=== PATIENT | female | born 1965 | race Caucasian/White ===

== ENCOUNTER 2016-07-07 15:55 | Emergency (ER) | payer OTHER ==
--- NOTE | 2016-07-07 18:40 | ED CLINICAL REPORT ---
Clinical Report - Physicians/Mid Levels [facility] [address] [place] [address] 07/07/2016 15:56 Patient: EUFEMIA THOMAS Time Seen: 1630Jul 07 2016. Arrived- By private vehicle. Historian- patient. HISTORY OF PRESENT ILLNESS Chief Complaint: ABDOMINAL PAIN. It is described as "pain" and it is described as located in the upper abdomen and in the lower abdomen. This started today. (3 hours post eating quesadilla, patient developed abdominal pain, upper abdominal pain, times lower abdominal pain, pain slowly improving. Patient denies any fevers or chills or diarrhea. Denies any nausea or vomiting. Denies any pain similar to this. Patient denies cough, COPD, recent illness. Denies any history of DVT or PE. Brown stool within the last few days. Denies hematochezia.). REVIEW OF SYSTEMS No constipation, black stools, headache, sore throat or chest pain. All systems otherwise negative, except as recorded above. SOCIAL HISTORY Never smoker. Alcohol use. ADDITIONAL NOTES The nursing notes have been reviewed. PHYSICAL EXAM Vital Signs: 07/07/2016 16:18 BP: 122/68. HR: 56. RR: 18. O2 saturation: 100%. Temp: 98.4 F. Appearance: Alert. ENT: Ears normal. Neck: Normal inspection. CVS: Normal heart rate and rhythm. No extra heart sounds. Respiratory: No respiratory distress. Breath sounds normal. Abdomen: Mild tenderness in the upper abdomen, periumbilical area and suprapubic area. No mass. No obesity, distention or guarding. Back: Normal inspection. Skin: Skin warm. Normal skin color. LABS, X-RAYS, AND EKG Laboratory Tests: UA-Culture if indicated: (NOMAN: 07/07/2016 17:00) ( MsgRcvd 07/07/2016 17:24) Final results Test Result Flag Units (Reference) URINE COLOR YELLOW URINE APPEARANCE CLOUDY URINE GLUCOSE NEGATIVE (NEGATIVE) URINE BILIRUBIN NEGATIVE (NEGATIVE) URINE KETONE NEGATIVE (NEGATIVE) URINE SPECIFIC GRAVITY 1.015 (1.010-1.030) URINE PH 8.5 H (5.0-8.0) URINE PROTEIN NEGATIVE (NEGATIVE) URINE UROBILINOGEN 0.2 EU/dL (0.2-1.0) URINE NITRITE NEGATIVE (NEGATIVE) URINE BLOOD NEGATIVE (NEGATIVE) URINE LEUK ESTERASE NEGATIVE (NEGATIVE) URINE RBC NONE SEEN rbc/hpf (0-1) URINE WBC 0-1 wbc/hpf (0-1) URINE EPITHELIAL CELLS 1-3 EPI/hpf (0-5) URINE BACTERIA TRACE (<1+) (NONE SEEN) URINE COMMENT CULT NOT INDICATED 2+ AMORPHOUSURINE CULTURES ARE SET-UP BASED ON THE FOLLOWING CRITERIA:POSITIVE NITRITEPOSITIVE LEUKOCYTE ESTERASEGREATER THAN 10 WHITE BLOOD CELLSMODERATE (2+) OR GREATER BACTERIA CBC w Diff: (NOMAN: 07/07/2016 16:25) ( [facility] 07/07/2016 16:49) Final results Test Result Flag Units (Reference) WHITE BLOOD COUNT 8.2 K/uL (4.5-11.5) RED BLOOD COUNT 4.76 M/uL (4.00-5.20) HEMOGLOBIN 14.1 gm/dL (12.0-16.0) HEMATOCRIT 41.9 % (36.0-46.0) MEAN CELL VOLUME 88 fL (80-100) MEAN CORPUSCULAR HGB 30 pg (26-34) MEAN CORPUSCULAR HGB CONC 34 g/dL (31-37) RED CELL DISTRIBUTION WIDTH 13.6 % (11.6-14.8) PLATELET COUNT 196 K/uL (150-400) NEUTROPHIL % 52.1 % (50-75) LYMPH % 40.8 H % (25-40) MONO % 6.1 % (3-14) EOSINOPHIL % 0.7 % (0-4) BASOPHIL % 0.3 % (0-2) CMP: (NOMAN: 07/07/2016 16:25) ( [facility] 07/07/2016 17:06) Final results Test Result Flag Units (Reference) GLUCOSE 101 mg/dL (70-110) BUN 14 mg/dL (7-18) CREATININE 1.0 mg/dL (0.6-1.3) Estimated GFR >60 mL/min Estimated GFR- >60 mL/min Note: Persistent reduction over 3 months in eGFR<60 mL/min/1.73 m2 defines CKD. Patients with eGFR values>=60 mL/min/1.73 m2 may also have CKD if evidence ofpersistent proteinuria. Additional information may be foundat www.kidney.org. SODIUM 142 mmol/L (136-145) POTASSIUM 3.3 L mmol/L (3.5-5.1) CHLORIDE 105 mmol/L (98-107) CARBON DIOXIDE 26 mmol/L (21-32) CALCIUM 9.1 mg/dL (8.5-10.1) TOTAL PROTEIN 7.6 g/dL (6.4-8.2) ALBUMIN 4.0 g/dL (3.3-5.0) BILIRUBIN, TOTAL 0.3 mg/dL (0.0-1.0) ALKALINE PHOSPHATASE 67 U/L (46-116) AST (SGOT) 20 U/L (15-37) ALT (SGPT) 33 U/L (12-78) LIPASE 123 U/L (73-393) . Note - Tests: (US abd: IMPRESSION: 1. Two hepatic hemangiomas Electronically Final signed by:Elliott Ambrocio MD 07/07/2016 9:13:31 PM). PROGRESS AND PROCEDURES Course of Care: Patient has had urinary irritation for a few years, no new symptoms in relationship to urine today, thus will not treat for urine, and await culture. She had epigastric pain status post eating. Per head of academic technology report, no obvious findings concerning for acute cholecystitis. During the time in the ED, the following DDX were considered: acute surgical abdomen, hemodynamic or metabolic instability, dehydration, gastroenteritis-viral, food borne, or bacterial, food intolerance, irritable or inflammatory bowel, infection, sepsis. 07/07/2016 18:55 BP: 140/70. HR: 79. RR: 20. O2 saturation: 100%. Pain level now: 2/10. Patient is stable. Patient/family counseled. Disposition: Discharged. Condition: good. CLINICAL IMPRESSION Abdominal pain of unknown cause. INSTRUCTIONS Drink plenty of fluids. Take small frequent sips Follow a soft diet. Prescription Medications: Zofran (orally disintegrating tablets) 4 mg: take 1 orally every 6 hours for 3 days as needed for nausea. Dispense ten (10). No refill. Substitution is permissible. Omeprazole 20 mg capsules: Take 1 orally once daily. Dispense fifteen (15). No refills. Follow-up: Follow up with your doctor in five days. (Electronically signed by Heidi Obando P.A.-C 07/07/2016 21:56)
--- NOTE | 2016-07-07 18:40 | ED ORDER SUMMARY ---
..... Patient: EUFEMIA THOMAS OrderSheet [facility] VisitID: [id number] [place] [address] 50y, F Registration Date/Time: 07/07/2016 ORDER SHEET Weight: 72.5 kg (stated) Allergies: Imitrex, All anti seizure medications, Zanaflex GENERAL ORDERS: US Abdomen Limited (No) Urgent (16:40 07/07/2016 EKoroleva P.A.-C) (Ack 16:47 RKaruga) (18:15 KWilliams R.N.) CBC w Diff Urgent (16:41 07/07/2016 EKoroleva P.A.-C) (Ack 16:46 RKaruga) (16:48 SReitz R.N.) CMP Urgent (16:41 07/07/2016 EKoroleva P.A.-C) (Ack 16:46 RKaruga) (16:48 SReitz R.N.) UA-Culture if indicated Urgent (16:41 07/07/2016 EKoroleva P.A.-C) (Ack 16:46 RKaruga) (17:08 OHernandez) Lipase Urgent (16:41 07/07/2016 EKoroleva P.A.-C) (Ack 16:46 RKaruga) (16:48 SReitz R.N.) MEDICATION ORDERS: IV FLUIDS: IV Saline Lock (16:41 07/07/2016 EKoroleva P.A.-C) (Ack 16:48 SReitz R.N.) (17:03 KWilliams R.N.) Zofran IV 4 mg (NOW) (18:13 07/07/2016 EKoroleva P.A.-C) (18:13 KWilliams R.N.) ORDER SHEET NOTES: [Electronically signed by Alexandra Cao R.N. (20:29 07/07/2016)] [Electronically signed by Heidi Obando P.A.-C (21:56 07/07/2016)] [Electronically locked/signed by Alexandra Cao R.N. (20:29 07/07/2016)]
--- NOTE | 2016-07-07 18:40 | ED NURSING NOTES ---
Clinical Report - Nurses [facility] [address] [place] [address] 07/07/2016 15:56 Patient: EUFEMIA THOMAS TRIAGE Triage time 16:18. Acuity: LEVEL 3. Chief Complaint: ABDOMINAL PAIN and NAUSEA. Alert. No acute distress. ( Pt. states she has had "migraines forever but I dont think I have ever had a stomach one). SEPSIS SCREEN: Sepsis Screen. Negative (no infection suspected/documented). EVA COMA SCORE: [place] Coma Scale: 15- eyes open spontaneously (4); best verbal response- oriented x 4 (5); best motor response- obeys commands (6). --16:24 Bina Jasso R.N. 16:18 07/07/16. BP: 122/68. HR: 56. RR: 18. O2 saturation: 100%. Temp: 98.4 F. Pain level now 10/10. --16:24 Bina Jasso R.N. Weight: 72.5 kg stated. Height/Length: 67 inches Per Patient. BMI: 25.1. --16:20 Bina Jasso R.N. Medications Ibuprofen Oral, as needed. --16:21 Bina Jasso R.N. Allergies Imitrex. --16:21 Bina Jasso R.N. All anti seizure medications. --16:21 Bina Jasso R.N. Zanaflex. --16:22 Bina Jasso R.N. History Arrived by private vehicle. Historian: patient. Accompanied by spouse. Primary physician (Zee Davis). This started today. 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 (800mg in the am). PAST MEDICAL HX: Immunizations: up-to-date. SOCIAL HX: Never smoker. Occasional alcohol use. No drug use. No recent travel. No known contact with a sick individual. ABUSE ASSESSMENT: Abuse assessment: The patient was asked "Do you feel safe in your home?" and "Has anyone hurt you or threatened to hurt you?". No report of abuse. NUTRITIONAL RISK ASSESSMENT: The nutritional risk assessment revealed no deficiencies. FUNCTIONAL ASSESSMENT: Functional assessment: no impairments noted. LEARNING NEEDS ASSESSMENT: The learning needs assessment revealed no barriers. --16:24 Bina Jasso R.N. PROBLEMS: Glaucoma. Asthma. Breast Mass. Migraine Headache. --16:23 Bina Jasso R.N. ADDITIONAL SURGERIES: Breast. PFO closure. --16:24 Bina Jasso R.N. Interventions ID band on patient. Transported via wheelchair. --16:24 Bina Jasso R.N. PHYSICAL ASSESSMENT Ambulatory to room. GENERAL / NEURO / PSYCH: Alert. Appears in no acute distress. HEENT: Mucous membranes are pink. RESPIRATORY: Respirations not labored. CVS: Capillary refill less than 2 seconds. GI / : Abdomen soft. Abdominal tenderness in the lower abdomen. SKIN: Skin is warm and dry. --16:26 Bina Jasso R.N. NURSING PROGRESS NOTES Patient gowned. Head of bed elevated. Two patient identifiers checked. Call light placed in reach. Side rails up x 2. Bed placed in lowest position. Brakes of bed on. Patient ready for evaluation- chart flagged. --16:26 Bina Jasso R.N. 16:27 07/07/2016 Site #1 started via IV in the left antecubital space with an 20g angiocath, with aseptic technique and good blood return; one attempt. Blood drawn: rainbow set. Labeled in the presence of the patient and sent to the lab. Saline lock flushed with 10 mL saline. --16:27 Bina Jasso R.N. 17:49 07/07/16. ( vitals deferred, Ultrasound in progress). --17:49 Maria M Elizabeth R.N. 18:05 07/07/16. GI / : The patient reports vomiting (yellow-white emesis, <75cc). --18:15 Maria M Elizabeth R.N. 18:08 07/07/2016 Zofran (Ondansetron HCl) IVP 4 mg given over 2 minute(s) via site #1. Allergies verified and confirmed 5 rights. IV patency established. IV site checked: no pain, redness, or swelling. IV flushed thoroughly pre- and post-medication administration. IVP given by RN. --18:13 Maria M Elizabeth R.N. 18:05 07/07/16. BP: 138/80. HR: 75. RR: 16. O2 saturation: 100%. Pain level now 06/21. --18:15 Maria M Elizabeth R.N. Reassessment after medication administered. She reports no complaints, she is calm and resting quietly and she has had no adverse reaction. Overall patient status is improved- she states feels better. GI / : The patient reports nausea is gone now. The patient reports vomiting is gone now. --18:26 Maria M Elizabeth R.N. DISPOSITION / DISCHARGE Condition at departure: improved. No learning barriers present. Discharge instructions provided and reviewed with the patient and spouse. Reviewed medication(s) side effects, precautions, dosing and course information. Prescription(s) given to the patient. Patient verbalized understanding. Written instructions provided in Vietnamese. The patient was discharged home and accompanied by spouse. She left the Emergency Department ambulatory and via private vehicle. Spouse driving. Medication list reviewed and validated. --19:51 Alexandra Cao R.N. 18:55 07/07/16. BP: 140/70. HR: 79. RR: 20. O2 saturation: 100%. Temp: deferred. Pain level now: 05/24. 18:13 07/07/16. BP: 138/80. HR: 75. RR: 16. O2 saturation: 100%. Pain level now 06/21. 16:18 07/07/16. BP: 122/68. HR: 56. RR: 18. O2 saturation: 100%. Temp: 98.4 F. Pain level now 01/21. --19:51 Alexandra Cao R.N. 18:55. --19:51 Alexandra Cao R.N. Locked/Released at 07/07/2016 20:29 by Alexandra Cao R.N.
--- NOTE | 2016-07-07 18:40 | ED NURSING NOTES ---
Clinical Report - Nurses [facility] [address] [place] [address] 07/07/2016 15:56 Patient: EUFEMIA THOMAS TRIAGE Triage time 16:18. Acuity: LEVEL 3. Chief Complaint: ABDOMINAL PAIN and NAUSEA. Alert. No acute distress. ( Pt. states she has had "migraines forever but I dont think I have ever had a stomach one). SEPSIS SCREEN: Sepsis Screen. Negative (no infection suspected/documented). EVA COMA SCORE: [place] Coma Scale: 15- eyes open spontaneously (4); best verbal response- oriented x 4 (5); best motor response- obeys commands (6). --16:24 Bina Jasso R.N. 16:18 07/07/16. BP: 122/68. HR: 56. RR: 18. O2 saturation: 100%. Temp: 98.4 F. Pain level now 10/10. --16:24 Bina Jasso R.N. Weight: 72.5 kg stated. Height/Length: 67 inches Per Patient. BMI: 25.1. --16:20 Bina Jasso R.N. Medications Ibuprofen Oral, as needed. --16:21 Bina Jasso R.N. Allergies Imitrex. --16:21 Bina Jasso R.N. All anti seizure medications. --16:21 Bina Jasso R.N. Zanaflex. --16:22 Bina Jasso R.N. History Arrived by private vehicle. Historian: patient. Accompanied by spouse. Primary physician (Zee Davis). This started today. 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 (800mg in the am). PAST MEDICAL HX: Immunizations: up-to-date. SOCIAL HX: Never smoker. Occasional alcohol use. No drug use. No recent travel. No known contact with a sick individual. ABUSE ASSESSMENT: Abuse assessment: The patient was asked "Do you feel safe in your home?" and "Has anyone hurt you or threatened to hurt you?". No report of abuse. NUTRITIONAL RISK ASSESSMENT: The nutritional risk assessment revealed no deficiencies. FUNCTIONAL ASSESSMENT: Functional assessment: no impairments noted. LEARNING NEEDS ASSESSMENT: The learning needs assessment revealed no barriers. --16:24 Bina Jasso R.N. PROBLEMS: Glaucoma. Asthma. Breast Mass. Migraine Headache. --16:23 Bina Jasso R.N. ADDITIONAL SURGERIES: Breast. PFO closure. --16:24 Bina Jasso R.N. Interventions ID band on patient. Transported via wheelchair. --16:24 iBna Jasso R.N. PHYSICAL ASSESSMENT Ambulatory to room. GENERAL / NEURO / PSYCH: Alert. Appears in no acute distress. HEENT: Mucous membranes are pink. RESPIRATORY: Respirations not labored. CVS: Capillary refill less than 2 seconds. GI / : Abdomen soft. Abdominal tenderness in the lower abdomen. SKIN: Skin is warm and dry. --16:26 Bina Jasso R.N. NURSING PROGRESS NOTES Patient gowned. Head of bed elevated. Two patient identifiers checked. Call light placed in reach. Side rails up x 2. Bed placed in lowest position. Brakes of bed on. Patient ready for evaluation- chart flagged. --16:26 Bina Jasso R.N. 16:27 07/07/2016 Site #1 started via IV in the left antecubital space with an 20g angiocath, with aseptic technique and good blood return; one attempt. Blood drawn: rainbow set. Labeled in the presence of the patient and sent to the lab. Saline lock flushed with 10 mL saline. --16:27 Bina Jasso R.N. 17:49 07/07/16. ( vitals deferred, Ultrasound in progress). --17:49 Maria M Elizabeth R.N. 18:05 07/07/16. GI / : The patient reports vomiting (yellow-white emesis, <75cc). --18:15 Maria M Elizabeth R.N. 18:08 07/07/2016 Zofran (Ondansetron HCl) IVP 4 mg given over 2 minute(s) via site #1. Allergies verified and confirmed 5 rights. IV patency established. IV site checked: no pain, redness, or swelling. IV flushed thoroughly pre- and post-medication administration. IVP given by RN. --18:13 Maria M Elizabeth R.N. 18:05 07/07/16. BP: 138/80. HR: 75. RR: 16. O2 saturation: 100%. Pain level now 06/21. --18:15 Maria M Elizabeth R.N. Reassessment after medication administered. She reports no complaints, she is calm and resting quietly and she has had no adverse reaction. Overall patient status is improved- she states feels better. GI / : The patient reports nausea is gone now. The patient reports vomiting is gone now. --18:26 Maria M Elizabeth R.N. DISPOSITION / DISCHARGE Condition at departure: improved. No learning barriers present. Discharge instructions provided and reviewed with the patient and spouse. Reviewed medication(s) side effects, precautions, dosing and course information. Prescription(s) given to the patient. Patient verbalized understanding. Written instructions provided in Austrian. The patient was discharged home and accompanied by spouse. She left the Emergency Department ambulatory and via private vehicle. Spouse driving. Medication list reviewed and validated. --19:51 Alexandra Cao R.N. 18:55 07/07/16. BP: 140/70. HR: 79. RR: 20. O2 saturation: 100%. Temp: deferred. Pain level now: 05/24. 18:13 07/07/16. BP: 138/80. HR: 75. RR: 16. O2 saturation: 100%. Pain level now 06/21. 16:18 07/07/16. BP: 122/68. HR: 56. RR: 18. O2 saturation: 100%. Temp: 98.4 F. Pain level now 01/21. --19:51 Alexandra Cao R.N. 18:55. --19:51 Alexandra Cao R.N. Locked/Released at 07/07/2016 20:29 by Alexandra Cao R.N.
--- NOTE | 2016-07-07 18:40 | ED ORDER SUMMARY ---
..... Patient: EUFEMIA THOMAS OrderSheet [facility] VisitID: [id number] [place] [address] 50y, F Registration Date/Time: 07/07/2016 ORDER SHEET Weight: 72.5 kg (stated) Allergies: Imitrex, All anti seizure medications, Zanaflex GENERAL ORDERS: US Abdomen Limited (No) Urgent (16:40 07/07/2016 EKoroleva P.A.-C) (Ack 16:47 RKaruga) (18:15 KWilliams R.N.) CBC w Diff Urgent (16:41 07/07/2016 EKoroleva P.A.-C) (Ack 16:46 RKaruga) (16:48 SReitz R.N.) CMP Urgent (16:41 07/07/2016 EKoroleva P.A.-C) (Ack 16:46 RKaruga) (16:48 SReitz R.N.) UA-Culture if indicated Urgent (16:41 07/07/2016 EKoroleva P.A.-C) (Ack 16:46 RKaruga) (17:08 OHernandez) Lipase Urgent (16:41 07/07/2016 EKoroleva P.A.-C) (Ack 16:46 RKaruga) (16:48 SReitz R.N.) MEDICATION ORDERS: IV FLUIDS: IV Saline Lock (16:41 07/07/2016 EKoroleva P.A.-C) (Ack 16:48 SReitz R.N.) (17:03 KWilliams R.N.) Zofran IV 4 mg (NOW) (18:13 07/07/2016 EKoroleva P.A.-C) (18:13 KWilliams R.N.) ORDER SHEET NOTES: [Electronically signed by Alexandra Cao R.N. (20:29 07/07/2016)] [Electronically signed by Heidi Obando P.A.-C (21:56 07/07/2016)] [Electronically locked/signed by Alexandra Cao R.N. (20:29 07/07/2016)]
--- NOTE | 2016-07-07 21:13 | DIAGNOSTIC IMAGING REPORT ---
PROCEDURE: US ABDOMEN ULTRASOUND-LIMITED INDICATION: RUQ PAIN TECHNIQUE: Abdul scale and color Doppler sonographic images of the abdomen were obtained. COMPARISON: None. FINDINGS: Liver measures 17.4 cm with two echogenic masses measuring 0.9 x 0.6 x 0.8 cm and 2.5 x 1.6 x 3.1 cm, most consistent with hemangiomas. Normal pancreas, gallbladder and CBD (2.7 mm). Aorta and IVC are patent. Normal hepatopetal flow. Normal right kidney measures 9.4 cm. IMPRESSION: 1. Two hepatic hemangiomas
--- NOTE | 2016-07-07 21:56 | ED MED RECONCILIATION SUMMARY ---
Patient: EUFEMIA THOMAS Medication Reconciliation Report [facility] VisitID: [id number] [address] [place] [address] 50y, F Registration Date/Time: 07/07/2016 Weight: 72.5 kg Height/Length: 67 in. BMI: 25.1 ALLERGIES: All anti seizure medications, Imitrex, Zanaflex The patient's Home Medications are listed below: THE FOLLOWING MEDICATIONS NEED TO BE RECONCILED: Ibuprofen Oral The source(s) of the original Home Medication information: Not obtained. The following Medications were given to the patient in the Emergency Department: Zofran [IVP] IVP 4 mg, administered: 07/07/2016 6:08:00 PM The following Medications were prescribed to the patient: Zofran (orally disintegrating tablets) 4 mg: take 1 orally every 6 hours for 3 days as needed for nausea. Dispense ten (10). No refill. Substitution is permissible. -- Heidi Obando, P.A.-Ava Omeprazole 20 mg capsules: Take 1 orally once daily. Dispense fifteen (15). No refills. -- Heidi Obando, P.A.-C
--- NOTE | 2016-07-07 21:56 | ED MAR SUMMARY ---
..... Medication Administration Record [facility] [address] [place] [address] Patient: EUFEMIA THOMAS Visit ID: [id number] 50y, F Weight: 72.5 kg Height/Length: 67 in BMI: 25.1 ALLERGIES: Zanaflex, All anti seizure medications, Imitrex Given 18:08 07/07/2016 Maria M Elizabeth R.N. Medication Administered: ZOFRAN [IVP] (ONDANSETRON HCL), Dose: 4 mg IVP over 2 minute(s), Site: #1 left AC. Medication Ordered: Zofran IV 4 mg (NOW).
--- NOTE | 2016-07-07 21:56 | ED MED RECONCILIATION SUMMARY ---
Patient: EUFEMIA THOMAS Medication Reconciliation Report [facility] VisitID: [id number] [address] [place] [address] 50y, F Registration Date/Time: 07/07/2016 Weight: 72.5 kg Height/Length: 67 in. BMI: 25.1 ALLERGIES: All anti seizure medications, Imitrex, Zanaflex The patient's Home Medications are listed below: THE FOLLOWING MEDICATIONS NEED TO BE RECONCILED: Ibuprofen Oral The source(s) of the original Home Medication information: Not obtained. The following Medications were given to the patient in the Emergency Department: Zofran [IVP] IVP 4 mg, administered: 07/07/2016 6:08:00 PM The following Medications were prescribed to the patient: Zofran (orally disintegrating tablets) 4 mg: take 1 orally every 6 hours for 3 days as needed for nausea. Dispense ten (10). No refill. Substitution is permissible. -- Heidi Obando, P.A.-Ava Omeprazole 20 mg capsules: Take 1 orally once daily. Dispense fifteen (15). No refills. -- Heidi Oabndo, P.A.-C
--- NOTE | 2016-07-07 21:56 | ED MAR SUMMARY ---
..... Medication Administration Record [facility] [address] [place] [address] Patient: EUFEMIA THOMAS Visit ID: [id number] 50y, F Weight: 72.5 kg Height/Length: 67 in BMI: 25.1 ALLERGIES: Zanaflex, All anti seizure medications, Imitrex Given 18:08 07/07/2016 Maria M Elizabeth R.N. Medication Administered: ZOFRAN [IVP] (ONDANSETRON HCL), Dose: 4 mg IVP over 2 minute(s), Site: #1 left AC. Medication Ordered: Zofran IV 4 mg (NOW).
--- NOTE | 2016-07-07 21:56 | ED DISCHARGE INSTRUCTIONS ---
Patient: EUFEMIA THOMAS General Instructions [facility] VisitID: [id number] [place] [address] 50y, F Registration Date/Time: 07/07/2016 Abdominal pain of unknown cause. INSTRUCTIONS Drink plenty of fluids. Take small frequent sips Follow a soft diet. Prescription Medications: Zofran (orally disintegrating tablets) 4 mg: take 1 orally every 6 hours for 3 days as needed for nausea. Dispense ten (10). No refill. Substitution is permissible. Omeprazole 20 mg capsules: Take 1 orally once daily. Dispense fifteen (15). No refills. Follow-up: Follow up with your doctor in five days. ADDITIONAL INFORMATION Abdominal Pain, Unknown Cause (Female) The exact cause of your abdominal (stomach) pain is not certain. This does not mean that this is something to worry about, or the right tests were not done. Everyone likes to know the exact cause of the problem, but sometimes with abdominal pain, there is no clear-cut cause, and this could be a good thing. The good news is that your symptoms can be treated, and you will feel better. Your condition does not seem serious now; however, sometimes the signs of a serious problem may take more time to appear. For this reason,it is important for you to watch for any new symptoms, problems,or worsening of your condition. Over the next few days, the abdominal pain may come and go, or be continuous. Other common symptoms can include nausea and vomiting. Sometimes it can be difficult to tell if you feel nauseous, you may just feel bad and not associate that feeling with nausea. Constipation, diarrhea, and a fever may go along with the pain. The pain may continue even if treated correctly over the following days. Depending on how things go, sometimes the cause can become clear and may require further or different treatment. Additional evaluations, medications, or tests may be needed. Home care Your health care provider may prescribe medications for pain, symptoms, or an infection. Follow the health care provider's instructions for taking these medications. General care Rest until your next exam. No strenuous activities. Try to find positions that ease discomfort. A small pillow placed on the abdomen may help relieve pain. Something warm on your abdomen (such as a heating pad) may help, but be careful not to burn yourself. Diet Do not force yourself to eat, especially if having cramps, vomiting, or diarrhea. Water is important so you do not get dehydrated. Soup may also be good. Sports drinks may also help, especially if they are not too acidic. Make sure you don't drink sugary drinks as this can make things worse. Take liquids in small amounts. Do not guzzle them. Caffeine sometimes makes the pain and cramping worse. Avoid dairy products if you have vomiting or diarrhea. Don't eat large amounts at a time. Wait a few minutes between bites. Eat a diet low in fiber (called a low-residue diet). Foods allowed include refined breads, white rice, fruit and vegetable juices without pulp, tender meats. These foods will pass more easily through the intestine. Avoid whole-grain foods, whole fruits and vegetables, meats, seeds and nuts, fried or fatty foods, dairy, alcohol and spicy foods until your symptoms go away. Follow-up care Follow up with your health care provider as instructed, or if your pain does not begin to improve in the next 24 hours. When to seek medical care Seek prompt medical care if any of the following occur: Pain gets worse or moves to the right lower abdomen New or worsening vomiting or diarrhea Swelling of the abdomen Unable to pass stool for more than three days Fever of 100.4F (38C) or higher, or as directed by your healthcare provider. Blood in vomit or bowel movements (dark red or black color) Jaundice (yellow color of eyes and skin) Weakness, dizziness Chest, arm, back, neck or jaw pain Unexpected vaginal bleeding or missed period Call 911 Call emergency services if any of the following occur: Trouble breathing Confusion Fainting or loss of consciousness Rapid heart rate Seizure Epigastric Pain (Uncertain Cause) Epigastric pain can be a sign of disease in the upper abdomen. Common causes include: Acid reflux (stomach acid flowing up into the esophagus) Gastritis (irritation of the stomach lining) Peptic Ulcer Disease Inflammation of the pancreas Gallstone Infection in the gallbladder Pain may be dull or burning. It may spread upward to the chest or to the back. There may be other symptoms such as belching, bloating, cramps or hunger pains. There may be weight loss or poor appetite, nausea or vomiting. Since the diagnosis of your pain is not certain yet, further tests will be needed. Sometimes the doctor will treat you for the most likely condition to see if there is improvement before doing further tests. Home Care: Unless told otherwise, you may try antacids (Mylanta or Maalox) help neutralize stomach acid. This may relieve your pain. Take 1-2 tablespoons or tablets one hour after meals and at bedtime. The liquid form coats the stomach better than the chewable tablets and is preferred. If Tagamet (cimetidine), Zantac (ranitidine), or Carafate (sucralfate) has also been prescribed, allow one hour between taking this medicine and taking the antacids. Avoid foods that irritate the stomach. Follow a light diet until you are feeling better. Avoid alcohol, caffeine, and tobacco. Talk to your doctor before taking any [id number] medicine that contains aspirin or an anti-inflammatory drug such as ibuprofen, Advil, Motrin, Naprosyn, or Aleve. Follow Up with your doctor or as advised if you do not improve over the next 48 hours. Get Prompt Medical Attention if any of the following occur: Stomach pain worsens or moves to the right lower part of the abdomen Chest pain appears, or if it worsens or spreads to the chest, back, neck, shoulder, or arm Frequent vomiting (cant keep down liquids) Blood in the stool or vomit (red or black color) Feeling weak or dizzy, fainting, or having trouble breathing Fever of 100.4F (38C) or higher, or as directed by your healthcare provider Abdominal swelling Symptoms With Uncertain Cause [Adult] Based on the exam and any tests that were performed today, the exact cause of your symptoms is not certain. While your condition does not seem serious, the signs of a serious problem may take more time to appear. Therefore, it is important for you to watch for any new symptoms or worsening of your condition.Follow up with your doctor or this facility, as directed.A repeat physical exam or additional testing at a later time may uncover a cause for your symptoms that is not evident today. Home Care: Resume your usual activities and diet when this feels comfortable to do so. Follow Up with your doctor, or as advised by our staff.Contact your doctor sooner if your symptoms do not begin to improve in the next few days. [NOTE: If you had an x-ray, CT scan, ultrasound, or ECG (electrocardiogram), it will be reviewed by a specialist. You will be notified of any new findings that may affect your care.] Get Prompt Medical Attention if any of the following occur: Current symptoms get worse New symptoms appear [place] Diet A bland diet is used for patients with an upset stomach. It consists of foods that are mild and easy to digest. It is better to eat small frequent meals rather than three large meals a day. BEVERAGES OK: Fruit juices, non-caffeinated teas and coffee, non-carbonated sharp AVOID: Carbonated beverage, caffeinated tea and coffee, all alcoholic beverages BREAD OK: Refined white, wheat or rye bread, norm or soda crackers, [place] toast, plain rolls, bagels AVOID: Whole-grain bread CEREAL OK: Refined cereals: cooked or ready to eat AVOID: Whole grain cereals and granola, or those containing bran, seeds or nuts DESSERTS OK: Peanut butter and all others except those to "avoid" AVOID: Chocolate, cocoa, coconut, popcorn, nuts, seeds, jam, marmalade FRUITS OK: Canned, cooked, frozen or fresh fruits without seeds or tough skin AVOID: Olives, skin and seeds of fruit MEATS OK: All fresh or preserved meat, fish and fowl AVOID: Any that are prepared with those spices to "avoid" CHEESE & EGGS OK: Eggs, cottage cheese, cream cheese, other cheeses AVOID: All cheeses made with those spices to "avoid" POTATOES & PASTA OK: Potato, rice, macaroni, noodles, spaghetti AVOID: None SOUPS OK: All soups without heavy seasoning AVOID: Soups made with those spices to "avoid" VEGETABLES OK: Canned, cooked, fresh or frozen mildly flavored vegetables without seeds, skins or coarse fiber AVOID: Vegetables prepared with those spices to "avoid"; skin and seeds of vegetables and those with coarse fiber SPICES OK: Salt, lemon and [place] juice, vinegar, all extracts, mickey, cinnamon, thyme, mace, allspice, paprika AVOID: [place] powder, cloves, pepper, seed spices, garlic, gravy pickles, highly seasoned salad dressings Clear Liquid Diet Clear liquids are any liquid that you can see through as well as those that are very easy to digest. This is used while the body is recovering from irritation or infection of the stomach or intestinal tract. It may also be used before special procedures or surgery. This diet is to be used no more than three days. You may include the following items. Adults Adults should drink a total of 23 quarts of liquid per day. It may be easier to drink small frequent servings rather than a few large ones. Liquids can include: Fruit juices.Strained orange juice or lemonade (no pulp), apple, grape and cranberry juice, clear fruit drinks, sports drinks Beverages.Sport drinks, sodas, mineral water (plain or flavored), tea, black coffee, liquid gelatin (add twice the recommended amount of water) Soups.Clear broth, consomm, bouillon Desserts.Plain gelatin, popsicles, fruit juice bars Children Over 2 years old The following liquids are acceptable for children over age 2: Fruit juices.Strained orange juice or lemonade (no pulp), apple, grape and cranberry juice, clear fruit drinks Beverages. Sports drinks, sodas, mineral water (plain or flavored), tea, liquid gelatin (add twice the recommended amount of water) Soups. Clear broth, consomm, bouillon Desserts. Plain gelatin, popsicles, fruit juice bars Children under 2 years old Oral rehydration fluids such are available at drug stores and most grocery stores without a prescription. You have been given the following additional information: Abdominal Pain, Unknown Cause, (Female) Epigastric Pain (Uncertain Cause) Symptoms With Uncertain Cause Diet, [place] (Adult) Diet, Clear Liquid (Electronically signed by Heidi Obando P.A.-C 07/07/2016 21:56)
== END 2016-07-07 18:55 | disposition home or self-care (01) ==
LOC: ED SRH 15:55
DX: R10.30 Lower abdominal pain, unspecified (principal); Z88.8 Allergy status to other drugs, medicaments and biological substances
CPT/HCPCS: 90004; 90100; 92235; 95059